=== PATIENT | female | born 1970 | race Caucasian/White ===

== ENCOUNTER 2016-08-07 19:09 | Emergency (ER) | payer OTHER ==
[2016-08-07] MEDS ORDERED: IBUPROFEN 800 MG TAB As Ordered ONE (19:49)
[2016-08-07] MEDS ORDERED: PERCOCET 5MG/325MG TAB As Ordered ONE (20:57)
[2016-08-07] MEDS ORDERED: LIDOCAINE 2% MDV 20 ML VIAL As Ordered ONE (20:57)
[2016-08-07] MEDS ORDERED: cefTRIAXone SOD 1 GM VIAL (J0696) As Ordered ONE (21:47)
[2016-08-07] MEDS ORDERED: LIDOCAINE 1% MDV 20ML VIAL As Ordered ONE (21:47)
--- NOTE | 2016-08-07 22:55 | EDDOCDS ---
Nurse's Notes [facility] Name: Pia Rojas Age: 45 yrs Sex: Female : 1970 Arrival Date: 08/07/2016 Time: 19:09 Bed I1 / M1 Private MD: NO PRIMARY PHYSICIAN, . Diagnosis: Displaced fracture of medial phalanx of right lesser toe(s);Displaced fracture of proximal phalanx of right lesser toe(s);Laceration without foreign body of right lesser toe(s) without damage to nail Presentation: 08/07 19:26 Presenting complaint: Patient states: was taking down the ladder fell onto right foot. rs3 pain, swelling present. Adult Sepsis Screening: The patient does not have new or worsening altered mentation. Patient's respiratory rate is less than 22. Systolic blood pressure is greater than 100. Patient has a qSOFA score of 0- Negative Sepsis Screen. Suicide/Homicide risk assessment- the patient denies having any suicidal and/or homicidal ideations and does not present with any other emotional, behavioral or mental health complaints. Status: Patient is not a water pump servicer or dependent. Transition of care: patient was not received from another setting of care. 19:26 Acuity: OMER Level 4 rs3 19:26 Method Of Arrival: Wheelchair rs3 Triage Assessment: 19:29 General: Appears in no apparent distress. Pain: Location: dorsum of right foot. Pt rs3 Declines HIV testing. Musculoskeletal: Reports Pain is 8 out of 10 on a pain scale. 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 fluvoxamine 200mg Oral once daily 2. Calcarb 600 With Vitamin D 600 mg(1,500mg) -200 unit Oral tab daily - PMHx: Anxiety; - PSHx: Uterine Ablation; - Social history: Smoking status: Patient states was never smoker of tobacco. No barriers to communication noted, The patient speaks fluent Omani. - Family history: Not pertinent. - : The pt / caregiver states he / she is not on anticoagulants. Home medication list is obtained from the patient. - Exposure Risk Screening:: None identified. Screenin:08 Screening information is obtained from the patient. Fall risk: No risks identified. lf1 Assistance ADL's: requires no assistance with activities of daily living. Abuse/DV Screen: The patient / caregiver reports he/she is: not in a situation that causes fear, pain or injury. Nutritional screening: No deficits noted. Advance Directives:. 22:54 home support is adequate. dsf Assessment: 20:42 General: right foot soaking in saline and Hibiclens . dsf 21:01 Adult Sepsis Screening: The patient does not have new or worsening altered mentation. dsf Patient's respiratory rate is less than 22. Systolic blood pressure is greater than 100. Patient has a qSOFA score of 0- Negative Sepsis Screen. General: Appears in no apparent distress, Behavior is appropriate for age, cooperative. Pain: Location: dorsum of right foot Pain currently is 5 out of 10 on a pain scale. Quality of pain is described as pressure. Neurological: Level of Consciousness is awake, alert, Oriented to person, place, time. Cardiovascular: No deficits noted. Respiratory: No deficits noted. Musculoskeletal: 4th digit to right toe rotated. laceration noted in between 2nd and 3rd digit. 22:08 General: Appears in no apparent distress, Behavior is cooperative. Pain: Denies pain. lf1 Neurological: Level of Consciousness is awake, alert, Oriented to person, place, time. EENT: No deficits noted. Cardiovascular: Chest pain is denied. Respiratory: Respiratory effort is even, unlabored. GI: Denies nausea, vomiting. Derm:. 22:21 General: Provider at bedside. lf1 22:47 General: dressing to right foot applied by Dr. Campos. dsf 22:52 General: Appears in no apparent distress, comfortable, Behavior is appropriate for age, dsf cooperative. Pain: Denies pain. Neurological: Level of Consciousness is awake, alert, Oriented to person, place, time. Cardiovascular: No deficits noted. Respiratory: No deficits noted. GI: No deficits noted. Derm: Skin is pink, warm & dry. Musculoskeletal: Circulation, motion, and sensation intact. Vital Signs: 19:12 BP 115 / 65; Pulse 100; Resp 18 S; Temp 97.9(T); Pulse Ox 100% on R/A; Weight 63.5 kg gr2 (R); Height 5 ft. 1 in. (154.94 cm) (R); Pain 10/10; 22:03 BP 113 / 57; Pulse 83; Resp 16; Temp 98.0(O); Pulse Ox 100% on R/A; Pain 0/10; lf1 22:51 BP 117 / 62; Pulse 80; Resp 16; Temp 98.5(O); Pulse Ox 96% on R/A; Pain 0/10; dsf 19:12 Body Mass Index 26.45 (63.50 kg, 154.94 cm) gr2 Vitals: 19:12 Log In Time: August 07, 2016 at 19:12. gr2 ED Course: 19:11 Patient visited by Farrukh Hare. gr2 19:11 Patient moved to Waiting gr2 19:12 NO PRIMARY PHYSICIAN, . is Private Physician. gr2 19:14 Patient visited by Farrukh Hare. gr2 19:14 Patient moved to Pre RCE gr2 19:28 Triage Initiated rs3 20:33 Patient moved to I1 / M1 cz 20:36 Ousmane Haider PA is PHCP. btw 20:36 Tristin Miller DO is Attending Physician. btw 20:36 Patient visited by Ousmane Haider PA. btw 21:02 Patient visited by Margie Cardenas RN. dsf 22:08 The patient / caregiver is instructed regarding the plan of care and ED course. lf1 22:10 Patient visited by Agnes Griffith RN. lf1 22:[facility] btw 22:48 No IV's were initiated during this patient's visit. No procedures done that require dsf assistance. Crutch training done. Ortho shoe applied to right foot. Administered Medications: 20:01 Drug: Ibuprofen 800 mg [ibuprofen 800 mg tablet (1 tabs)] Route: PO; rs3 20:59 Drug: oxyCODONE-acetaminophen 1 tabs [oxycodone-acetaminophen 5 mg-325 mg tablet (1 dsf tabs)] Route: PO; 21:45 Drug: Lidocaine 10 ml [lidocaine 20 mg/mL (2 %) injection solution (10 mL)] Route: dsf Infiltration; 21:52 Drug: cefTRIAXone 1 grams [ceftriaxone 1 gram solution for injection (1 grams)] Route: dsf IM; Site: right gluteus; 21:52 Drug: Lidocaine 2.1 ml [lidocaine 10 mg/mL (1 %) injection solution (2.1 mL)] Route: dsf Infiltration; Order Results: There are currently no results for this order. Outcome: 22:46 Discharge ordered by Provider. btw 22:52 Discharge Assessment: Patient awake, alert and oriented x 3. No cognitive and/or dsf functional deficits noted. Patient verbalized understanding of disposition instructions. patient administered narcotics - yes. Pt provided with safe discharge. The following High Risk Discharge criteria are identified: None. Discharged to home with crutches, with family. Condition: stable. Discharge instructions given to patient, Instructed on discharge instructions, follow up and referral plans. medication usage, no driving heavy equipment, crutch walking, Demonstrated understanding of instructions, crutch walking, medications, Pt was receptive of discharge instructions/ teaching. Prescriptions given X 3. No special radiology studies were completed. Property sent home with patient. 22:54 Patient left the ED. dsf Signatures: Cristobal Hallman, RN RN cz Agnes GriffithRN RN lf1 Bell PorrasRN RN rs3 Ousmane Haider PA PA bt Margie Cardenas RN RN dsf Farrukh Hare gr2 TAMMIE
--- NOTE | 2016-08-07 22:55 | EDDOCDS ---
Physician Documentation [facility] Name: Pia Rojas Age: 45 yrs Sex: Female : 1970 Arrival Date: 08/07/2016 Time: 19:09 Bed I1 / M1 Private MD: NO PRIMARY PHYSICIAN, . Disposition: 08/07/16 22:46 Discharged to Home/Self Care. Impression: Displaced fracture of medial phalanx of right lesser toe(s), Displaced fracture of proximal phalanx of right lesser toe(s), Laceration without foreign body of right lesser toe(s) without damage to nail. - Condition is Stable. - Discharge Instructions: Laceration Care, Adult, Toe Fracture, [id number]. - Prescriptions for Augmentin 875- 125 mg Oral Tablet - take 1 tablet by ORAL route every 12 hours for 10 days; 20 tablet. Ibuprofen 800 mg Oral Tablet - take 1 tablet by ORAL route every 8 hours As needed take with food; 30 tablet. Percocet 5- 325 mg Oral Tablet - take 1 tablet by ORAL route every 6 hours As needed MDD: 4 tabs; 20 tablet. - Medication Reconciliation, Local Pharmacy Hours form. - Follow up: Orthopaedics, [facility]; When: Call to arrange an appointment; Reason: Further diagnostic work-up, Recheck today's complaints, Continuance of care. - Problem is new. - Symptoms are unchanged. Historical: - Allergies: no known allergies; - Home Meds: 1. fluvoxamine 200mg Oral once daily 2. Calcarb 600 With Vitamin D 600 mg(1,500mg) -200 unit Oral tab daily - PMHx: Anxiety; - PSHx: Uterine Ablation; - Social history: Smoking status: Patient states was never smoker of tobacco. No barriers to communication noted, The patient speaks fluent [place]. - Family history: Not pertinent. - : The pt / caregiver states he / she is not on anticoagulants. Home medication list is obtained from the patient. - Exposure Risk Screening:: None identified. 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 1 in. (154.94 cm) (R); Pain 10/10; 22:03 BP 113 / 57; Pulse 83; Resp 16; Temp 98.0(O); Pulse Ox 100% on R/A; Pain 0/10; lf1 22:51 BP 117 / 62; Pulse 80; Resp 16; Temp 98.5(O); Pulse Ox 96% on R/A; Pain 0/10; dsf 19:12 Body Mass Index 26.45 (63.50 kg, 154.94 cm) gr2 MDM: 19:48 Ibuprofen 800 mg PO once ordered. rs3 20:30 Foot, complete Ordered. EDMS 20:47 oxyCODONE-acetaminophen 5 mg-325 mg 1 tabs PO once ordered. btw 20:47 Lidocaine 20 mg/mL (2 %) 10 ml Infiltration once; to bedside ordered. btw 21:43 cefTRIAXone 1 grams IM once ordered. btw 21:49 Lidocaine 10 mg/mL (1 %) 2.1 ml Infiltration once; to be used as diluent for rocephin btw ordered. [facility]. btw 22:46 Physician consultation: Dr. Pool Campos in the emergency department to see patient at btw 21:45. 22:47 Crutches ordered. btw 22:54 [facility] Order complete. dsf Administered Medications: 20:01 Drug: Ibuprofen 800 mg [ibuprofen 800 mg tablet (1 tabs)] Route: PO; rs3 20:59 Drug: oxyCODONE-acetaminophen 1 tabs [oxycodone-acetaminophen 5 mg-325 mg tablet (1 dsf tabs)] Route: PO; 21:45 Drug: Lidocaine 10 ml [lidocaine 20 mg/mL (2 %) injection solution (10 mL)] Route: dsf Infiltration; 21:52 Drug: cefTRIAXone 1 grams [ceftriaxone 1 gram solution for injection (1 grams)] Route: dsf IM; Site: right gluteus; 21:52 Drug: Lidocaine 2.1 ml [lidocaine 10 mg/mL (1 %) injection solution (2.1 mL)] Route: dsf Infiltration; Signatures: Dispatcher [employer] EDMS Bell Porras RN RN rs3 Ousmane Haider PA PA btw Cardenas,Margie,RN RN dsf The chart was reviewed and I authenticate all verbal orders and agree with the evaluation and treatment provided.Corrections: (The following items were deleted from the chart) 20:30 19:41 Foot, (AP\E\Lat)+XR ordered. EDMS EDMS MTDD
[2016-08-07] MEDS ORDERED: OXYCODONE/APAP 5MG/325MG(BULK) 1 TAB TAB As Ordered ONE (23:09)
--- NOTE | 2016-08-07 23:14 | EDDOCDS ---
Nurse's Notes [facility] Name: Pia Rojas Age: 45 yrs Sex: Female : 1970 Arrival Date: 08/07/2016 Time: 19:09 Bed I1 / M1 Private MD: NO PRIMARY PHYSICIAN, . Diagnosis: Displaced fracture of medial phalanx of right lesser toe(s);Displaced fracture of proximal phalanx of right lesser toe(s);Laceration without foreign body of right lesser toe(s) without damage to nail Presentation: 08/07 19:26 Presenting complaint: Patient states: was taking down the ladder fell onto right foot. rs3 pain, swelling present. Adult Sepsis Screening: The patient does not have new or worsening altered mentation. Patient's respiratory rate is less than 22. Systolic blood pressure is greater than 100. Patient has a qSOFA score of 0- Negative Sepsis Screen. Suicide/Homicide risk assessment- the patient denies having any suicidal and/or homicidal ideations and does not present with any other emotional, behavioral or mental health complaints. Status: Patient is not a corporate services manager or dependent. Transition of care: patient was not received from another setting of care. 19:26 Acuity: OMER Level 4 rs3 19:26 Method Of Arrival: Wheelchair rs3 Triage Assessment: 19:29 General: Appears in no apparent distress. Pain: Location: dorsum of right foot. Pt rs3 Declines HIV testing. Musculoskeletal: Reports Pain is 8 out of 10 on a pain scale. 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 fluvoxamine 200mg Oral once daily 2. Calcarb 600 With Vitamin D 600 mg(1,500mg) -200 unit Oral tab daily - PMHx: Anxiety; - PSHx: Uterine Ablation; - Social history: Smoking status: Patient states was never smoker of tobacco. No barriers to communication noted, The patient speaks fluent Cameroonian. - Family history: Not pertinent. - : The pt / caregiver states he / she is not on anticoagulants. Home medication list is obtained from the patient. - Exposure Risk Screening:: None identified. Screenin:08 Screening information is obtained from the patient. Fall risk: No risks identified. lf1 Assistance ADL's: requires no assistance with activities of daily living. Abuse/DV Screen: The patient / caregiver reports he/she is: not in a situation that causes fear, pain or injury. Nutritional screening: No deficits noted. Advance Directives:. 22:54 home support is adequate. dsf Assessment: 20:42 General: right foot soaking in saline and Hibiclens . dsf 21:01 Adult Sepsis Screening: The patient does not have new or worsening altered mentation. dsf Patient's respiratory rate is less than 22. Systolic blood pressure is greater than 100. Patient has a qSOFA score of 0- Negative Sepsis Screen. General: Appears in no apparent distress, Behavior is appropriate for age, cooperative. Pain: Location: dorsum of right foot Pain currently is 5 out of 10 on a pain scale. Quality of pain is described as pressure. Neurological: Level of Consciousness is awake, alert, Oriented to person, place, time. Cardiovascular: No deficits noted. Respiratory: No deficits noted. Musculoskeletal: 4th digit to right toe rotated. laceration noted in between 2nd and 3rd digit. 22:08 General: Appears in no apparent distress, Behavior is cooperative. Pain: Denies pain. lf1 Neurological: Level of Consciousness is awake, alert, Oriented to person, place, time. EENT: No deficits noted. Cardiovascular: Chest pain is denied. Respiratory: Respiratory effort is even, unlabored. GI: Denies nausea, vomiting. Derm:. 22:21 General: Provider at bedside. lf1 22:47 General: dressing to right foot applied by Dr. Campos. dsf 22:52 General: Appears in no apparent distress, comfortable, Behavior is appropriate for age, dsf cooperative. Pain: Denies pain. Neurological: Level of Consciousness is awake, alert, Oriented to person, place, time. Cardiovascular: No deficits noted. Respiratory: No deficits noted. GI: No deficits noted. Derm: Skin is pink, warm & dry. Musculoskeletal: Circulation, motion, and sensation intact. Vital Signs: 19:12 BP 115 / 65; Pulse 100; Resp 18 S; Temp 97.9(T); Pulse Ox 100% on R/A; Weight 63.5 kg gr2 (R); Height 5 ft. 1 in. (154.94 cm) (R); Pain 10/10; 22:03 BP 113 / 57; Pulse 83; Resp 16; Temp 98.0(O); Pulse Ox 100% on R/A; Pain 0/10; lf1 22:51 BP 117 / 62; Pulse 80; Resp 16; Temp 98.5(O); Pulse Ox 96% on R/A; Pain 0/10; dsf 19:12 Body Mass Index 26.45 (63.50 kg, 154.94 cm) gr2 Vitals: 19:12 Log In Time: August 07, 2016 at 19:12. gr2 ED Course: 19:11 Patient visited by Farrukh Hare. gr2 19:11 Patient moved to Waiting gr2 19:12 NO PRIMARY PHYSICIAN, . is Private Physician. gr2 19:14 Patient visited by Farrukh Hare. gr2 19:14 Patient moved to Pre RCE gr2 19:28 Triage Initiated rs3 20:33 Patient moved to I1 / M1 cz 20:36 Ousmane Haider PA is PHCP. btw 20:36 Tristin Miller DO is Attending Physician. btw 20:36 Patient visited by Ousmane Haider PA. btw 21:02 Patient visited by Margie Cardenas RN. dsf 22:08 The patient / caregiver is instructed regarding the plan of care and ED course. lf1 22:10 Patient visited by Agnes Griffith RN. lf1 22:[facility] btw 22:48 No IV's were initiated during this patient's visit. No procedures done that require dsf assistance. Crutch training done. Ortho shoe applied to right foot. 23:01 [facility] Payment Agreement was scanned into [employer] and attached to record. [email or web address] Administered Medications: 20:01 Drug: Ibuprofen 800 mg [ibuprofen 800 mg tablet (1 tabs)] Route: PO; rs3 20:59 Drug: oxyCODONE-acetaminophen 1 tabs [oxycodone-acetaminophen 5 mg-325 mg tablet (1 dsf tabs)] Route: PO; 21:45 Drug: Lidocaine 10 ml [lidocaine 20 mg/mL (2 %) injection solution (10 mL)] Route: dsf Infiltration; 21:52 Drug: cefTRIAXone 1 grams [ceftriaxone 1 gram solution for injection (1 grams)] Route: dsf IM; Site: right gluteus; 21:52 Drug: Lidocaine 2.1 ml [lidocaine 10 mg/mL (1 %) injection solution (2.1 mL)] Route: dsf Infiltration; Order Results: There are currently no results for this order. Outcome: 22:46 Discharge ordered by Provider. btw 22:52 Discharge Assessment: Patient awake, alert and oriented x 3. No cognitive and/or dsf functional deficits noted. Patient verbalized understanding of disposition instructions. patient administered narcotics - yes. Pt provided with safe discharge. The following High Risk Discharge criteria are identified: None. Discharged to home with crutches, with family. Condition: stable. Discharge instructions given to patient, Instructed on discharge instructions, follow up and referral plans. medication usage, no driving heavy equipment, crutch walking, Demonstrated understanding of instructions, crutch walking, medications, Pt was receptive of discharge instructions/ teaching. Prescriptions given X 3. No special radiology studies were completed. Property sent home with patient. 22:54 Patient left the ED. dsf 23:13 Patient left the ED. btw Signatures: Cristobal Hallman, RN RN Agnes Walker RN RN lf1 Bell PorrasRN RN rs3 Ousmane Haider PA PA btw Margie Cardenas RN RN dsf Farrukh Hare gr2 Lola Lo, Reg Reg [email or web address] MTDD
--- NOTE | 2016-08-07 23:14 | EDDOCDS ---
Physician Documentation [facility] Name: Pia Rojas Age: 45 yrs Sex: Female : 1970 Arrival Date: 08/07/2016 Time: 19:09 Bed I1 / M1 Private MD: NO PRIMARY PHYSICIAN, . Disposition: 08/07/16 22:46 Discharged to Home/Self Care. Impression: Displaced fracture of medial phalanx of right lesser toe(s), Displaced fracture of proximal phalanx of right lesser toe(s), Laceration without foreign body of right lesser toe(s) without damage to nail. - Condition is Stable. - Discharge Instructions: Laceration Care, Adult, Toe Fracture, [id number]. - Prescriptions for Augmentin 875- 125 mg Oral Tablet - take 1 tablet by ORAL route every 12 hours for 10 days; 20 tablet. Ibuprofen 800 mg Oral Tablet - take 1 tablet by ORAL route every 8 hours As needed take with food; 30 tablet. Percocet 5- 325 mg Oral Tablet - take 1 tablet by ORAL route every 6 hours As needed MDD: 4 tabs; 20 tablet. - Medication Reconciliation, Local Pharmacy Hours form. - Follow up: Orthopaedics, [facility]; When: Call to arrange an appointment; Reason: Further diagnostic work-up, Recheck today's complaints, Continuance of care. - Problem is new. - Symptoms are unchanged. Historical: - Allergies: no known allergies; - Home Meds: 1. fluvoxamine 200mg Oral once daily 2. Calcarb 600 With Vitamin D 600 mg(1,500mg) -200 unit Oral tab daily - PMHx: Anxiety; - PSHx: Uterine Ablation; - Social history: Smoking status: Patient states was never smoker of tobacco. No barriers to communication noted, The patient speaks fluent Botswanan. - Family history: Not pertinent. - : The pt / caregiver states he / she is not on anticoagulants. Home medication list is obtained from the patient. - Exposure Risk Screening:: None identified. 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 1 in. (154.94 cm) (R); Pain 10/10; 22:03 BP 113 / 57; Pulse 83; Resp 16; Temp 98.0(O); Pulse Ox 100% on R/A; Pain 0/10; lf1 22:51 BP 117 / 62; Pulse 80; Resp 16; Temp 98.5(O); Pulse Ox 96% on R/A; Pain 0/10; dsf 19:12 Body Mass Index 26.45 (63.50 kg, 154.94 cm) gr2 MDM: 19:48 Ibuprofen 800 mg PO once ordered. rs3 20:30 Foot, complete Ordered. EDMS 20:47 oxyCODONE-acetaminophen 5 mg-325 mg 1 tabs PO once ordered. btw 20:47 Lidocaine 20 mg/mL (2 %) 10 ml Infiltration once; to bedside ordered. btw 21:43 cefTRIAXone 1 grams IM once ordered. btw 21:49 Lidocaine 10 mg/mL (1 %) 2.1 ml Infiltration once; to be used as diluent for rocephin btw ordered. 22:44 [facility] Configuration Engineer Order ordered. btw 22:46 Physician consultation: Dr. Pool Campos in the emergency department to see patient at btw 21:45. 22:47 Crutches ordered. btw 22:54 [facility] Configuration Engineer Order complete. dsf 23:01 Financial registration complete. ks16 23:01 [facility] Payment Agreement was scanned into [employer] and attached to record. ks16 23:07 oxyCODONE-acetaminophen 4 pack 5 mg-325 mg 1 packets PO once; Dispense with pt, take as btw per instruction on package ordered. Administered Medications: 20:01 Drug: Ibuprofen 800 mg [ibuprofen 800 mg tablet (1 tabs)] Route: PO; rs3 20:59 Drug: oxyCODONE-acetaminophen 1 tabs [oxycodone-acetaminophen 5 mg-325 mg tablet (1 dsf tabs)] Route: PO; 21:45 Drug: Lidocaine 10 ml [lidocaine 20 mg/mL (2 %) injection solution (10 mL)] Route: dsf Infiltration; 21:52 Drug: cefTRIAXone 1 grams [ceftriaxone 1 gram solution for injection (1 grams)] Route: dsf IM; Site: right gluteus; 21:52 Drug: Lidocaine 2.1 ml [lidocaine 10 mg/mL (1 %) injection solution (2.1 mL)] Route: dsf Infiltration; Signatures: Dispatcher [employer] Bell Abraham RN RN rs3 Ousmane Haider PA PA btw Fuller, Desiree, RN RN dsf Lola Lo, Reg Reg [email or web address] The chart was reviewed and I authenticate all verbal orders and agree with the evaluation and treatment provided.Corrections: (The following items were deleted from the chart) 20:30 19:41 Foot, (AP\E\Lat)+XR ordered. EDMS EDMS Attachments: 23:01 [facility] Payment Agreement [email or web address] MTDD
--- NOTE | 2016-08-08 06:38 | ER ---
DATE OF CONSULTATION: 08/07/2016 She is a 45-year-old female, otherwise healthy, who sustained an injury to her right foot when a ladder fell on it causing fractures of the third and fourth middle phalanxes associated with lacerations dorsally and between the fourth and fifth toes. I was called to evaluate the possibility of open fracture into the fourth toe metatarsal phalangeal joint. On exam, no acute distress noted. No other complaints. She had some minute deformity of the fourth toe with dorsal subluxation. She was insensate secondary to previous digital blocking, but did have flexion and extension of all toes. X-rays demonstrate comminuted fractures of the middle phalanx of the third toe and a fracture dislocation of the fourth toe middle phalanx on the proximal phalanx that is unstable in nature. With exam, this is unstable in nature as well. The wounds were all copiously irrigated and soaked with chlorhexidine. The dorsal laceration was closed with one #4-0 Prolene suture without difficulty and no active bleeding. The laceration between the fourth and fifth toe was approximated with one chromic suture to negate the need for future suture removal and deformation of the fourth toe. She was placed in a reducing bandage to help hold the toes in alignment. Recommendation for her is continued oral antibiotics, strong pain medications, including Percocet and Motrin, and I would recommend early wound check followup on Thursday or Thursday of next week. She has my contact information as well should she have any issues.
--- NOTE | 2016-08-08 07:54 | REP ---
Clinical: Trauma. Technique: AP, lateral, bilateral oblique views of the right foot. Findings: Comminuted fractures involving the third toe proximal, middle and distal phalanges and fourth proximal phalanx are identified and of indeterminate age. Correlation is required. Underlying degenerative changes are appreciated primarily involving the tarsometatarsal joints and first toe. No subcutaneous emphysema or radiodense foreign body. Impression: Fractures involving the third and fourth digits. Degenerative changes. Signed by Bhargav Urban MD 08/08/2016 07:46 A
--- NOTE | 2016-08-10 00:14 | EDDOCDS ---
Physician Documentation [facility] Name: Pia Rojas Age: 45 yrs Sex: Female : 1970 Arrival Date: 08/07/2016 Time: 19:09 Bed I1 / M1 Private MD: NO PRIMARY PHYSICIAN, . Disposition: 08/07/16 22:46 Discharged to Home/Self Care. Impression: Displaced fracture of medial phalanx of right lesser toe(s), Displaced fracture of proximal phalanx of right lesser toe(s), Laceration without foreign body of right lesser toe(s) without damage to nail. - Condition is Stable. - Discharge Instructions: Laceration Care, Adult, Toe Fracture, [id number]. - Prescriptions for Augmentin 875- 125 mg Oral Tablet - take 1 tablet by ORAL route every 12 hours for 10 days; 20 tablet. Ibuprofen 800 mg Oral Tablet - take 1 tablet by ORAL route every 8 hours As needed take with food; 30 tablet. Percocet 5- 325 mg Oral Tablet - take 1 tablet by ORAL route every 6 hours As needed MDD: 4 tabs; 20 tablet. - Medication Reconciliation, Local Pharmacy Hours form. - Follow up: Orthopaedics, [facility]; When: Call to arrange an appointment; Reason: Further diagnostic work-up, Recheck today's complaints, Continuance of care. - Problem is new. - Symptoms are unchanged. Historical: - Allergies: no known allergies; - Home Meds: 1. fluvoxamine 200mg Oral once daily 2. Calcarb 600 With Vitamin D 600 mg(1,500mg) -200 unit Oral tab daily - PMHx: Anxiety; - PSHx: Uterine Ablation; - Social history: Smoking status: Patient states was never smoker of tobacco. No barriers to communication noted, The patient speaks fluent Samoan. - Family history: Not pertinent. - : The pt / caregiver states he / she is not on anticoagulants. Home medication list is obtained from the patient. - Exposure Risk Screening:: None identified. 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 1 in. (154.94 cm) (R); Pain 10/10; 22:03 BP 113 / 57; Pulse 83; Resp 16; Temp 98.0(O); Pulse Ox 100% on R/A; Pain 0/10; lf1 22:51 BP 117 / 62; Pulse 80; Resp 16; Temp 98.5(O); Pulse Ox 96% on R/A; Pain 0/10; dsf 19:12 Body Mass Index 26.45 (63.50 kg, 154.94 cm) gr2 MDM: 19:48 Ibuprofen 800 mg PO once ordered. rs3 20:30 Foot, complete Ordered. EDMS 20:47 oxyCODONE-acetaminophen 5 mg-325 mg 1 tabs PO once ordered. btw 20:47 Lidocaine 20 mg/mL (2 %) 10 ml Infiltration once; to bedside ordered. btw 21:43 cefTRIAXone 1 grams IM once ordered. btw 21:49 Lidocaine 10 mg/mL (1 %) 2.1 ml Infiltration once; to be used as diluent for rocephin btw ordered. 22:44 [facility] Order ordered. btw 22:46 Physician consultation: Dr. Pool Campos in the emergency department to see patient at btw 21:45. 22:47 Crutches ordered. btw 22:54 [facility] Order complete. dsf 23:01 Financial registration complete. ks16 23:01 [facility] Payment Agreement was scanned into [employer] and attached to record. ks16 23:07 oxyCODONE-acetaminophen 4 pack 5 mg-325 mg 1 packets PO once; Dispense with pt, take as btw per instruction on package ordered. 08/08 10:09 T-Sheet-- Draft Copy was scanned into [employer] and attached to record. gb Administered Medications: 08/07 20:01 Drug: Ibuprofen 800 mg [ibuprofen 800 mg tablet (1 tabs)] Route: PO; rs3 20:59 Drug: oxyCODONE-acetaminophen 1 tabs [oxycodone-acetaminophen 5 mg-325 mg tablet (1 dsf tabs)] Route: PO; 21:45 Drug: Lidocaine 10 ml [lidocaine 20 mg/mL (2 %) injection solution (10 mL)] Route: dsf Infiltration; 21:52 Drug: cefTRIAXone 1 grams [ceftriaxone 1 gram solution for injection (1 grams)] Route: dsf IM; Site: right gluteus; 21:52 Drug: Lidocaine 2.1 ml [lidocaine 10 mg/mL (1 %) injection solution (2.1 mL)] Route: dsf Infiltration; 23:15 Drug: oxyCODONE-acetaminophen 4 pack 1 packets [oxycodone-acetaminophen 5 mg-325 mg rw1 tablet (1 tabs)] {Co-Signature: ld5 (Cecilia Alaniz RN).} Route: PO; 23:15 Follow up: Response: Med's dispensed home rw1 Signatures: Dispatcher [employer] EDMS Leila Friedman, Reg Reg gb Bell Porras RN RN rs3 Ousmane Haider PA PA btw Fuller, DesireeRN RN dsf Lola Lo, Reg Reg ks16 Ananda Bueno LPN rw1 Cecilia Alaniz RN ld5 The chart was reviewed and I authenticate all verbal orders and agree with the evaluation and treatment provided.Corrections: (The following items were deleted from the chart) 20:30 19:41 Foot, (AP\E\Lat)+XR ordered. EDMS EDMS Attachments: 23:01 [facility] Payment Agreement [email or web address] 08/08 10:09 T-Sheet-- Draft Copy gb Chart [facility]
--- NOTE | 2016-08-10 00:14 | EDDOCDS ---
Nurse's Notes [facility] Name: Pia Rojas Age: 45 yrs Sex: Female : 1970 Arrival Date: 08/07/2016 Time: 19:09 Bed I1 / M1 Private MD: NO PRIMARY PHYSICIAN, . Diagnosis: Displaced fracture of medial phalanx of right lesser toe(s);Displaced fracture of proximal phalanx of right lesser toe(s);Laceration without foreign body of right lesser toe(s) without damage to nail Presentation: 08/07 19:26 Presenting complaint: Patient states: was taking down the ladder fell onto right foot. rs3 pain, swelling present. Adult Sepsis Screening: The patient does not have new or worsening altered mentation. Patient's respiratory rate is less than 22. Systolic blood pressure is greater than 100. Patient has a qSOFA score of 0- Negative Sepsis Screen. Suicide/Homicide risk assessment- the patient denies having any suicidal and/or homicidal ideations and does not present with any other emotional, behavioral or mental health complaints. 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 Transition of care: patient was not received from another setting of care. 19:26 Acuity: OMER Level 4 rs3 19:26 Method Of Arrival: Wheelchair rs3 Triage Assessment: 19:29 General: Appears in no apparent distress. Pain: Location: dorsum of right foot. Pt rs3 Declines HIV testing. Musculoskeletal: Reports Pain is 8 out of 10 on a pain scale. 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 fluvoxamine 200mg Oral once daily 2. Calcarb 600 With Vitamin D 600 mg(1,500mg) -200 unit Oral tab daily - PMHx: Anxiety; - PSHx: Uterine Ablation; - Social history: Smoking status: Patient states was never smoker of tobacco. No barriers to communication noted, The patient speaks fluent Filipino. - Family history: Not pertinent. - : The pt / caregiver states he / she is not on anticoagulants. Home medication list is obtained from the patient. - Exposure Risk Screening:: None identified. Screenin:08 Screening information is obtained from the patient. Fall risk: No risks identified. lf1 Assistance ADL's: requires no assistance with activities of daily living. Abuse/DV Screen: The patient / caregiver reports he/she is: not in a situation that causes fear, pain or injury. Nutritional screening: No deficits noted. Advance Directives:. 22:54 home support is adequate. dsf Assessment: 20:42 General: right foot soaking in saline and Hibiclens . dsf 21:01 Adult Sepsis Screening: The patient does not have new or worsening altered mentation. dsf Patient's respiratory rate is less than 22. Systolic blood pressure is greater than 100. Patient has a qSOFA score of 0- Negative Sepsis Screen. General: Appears in no apparent distress, Behavior is appropriate for age, cooperative. Pain: Location: dorsum of right foot Pain currently is 5 out of 10 on a pain scale. Quality of pain is described as pressure. Neurological: Level of Consciousness is awake, alert, Oriented to person, place, time. Cardiovascular: No deficits noted. Respiratory: No deficits noted. Musculoskeletal: 4th digit to right toe rotated. laceration noted in between 2nd and 3rd digit. 22:08 General: Appears in no apparent distress, Behavior is cooperative. Pain: Denies pain. lf1 Neurological: Level of Consciousness is awake, alert, Oriented to person, place, time. EENT: No deficits noted. Cardiovascular: Chest pain is denied. Respiratory: Respiratory effort is even, unlabored. GI: Denies nausea, vomiting. Derm:. 22:21 General: Provider at bedside. lf1 22:47 General: dressing to right foot applied by Dr. Campso. dsf 22:52 General: Appears in no apparent distress, comfortable, Behavior is appropriate for age, dsf cooperative. Pain: Denies pain. Neurological: Level of Consciousness is awake, alert, Oriented to person, place, time. Cardiovascular: No deficits noted. Respiratory: No deficits noted. GI: No deficits noted. Derm: Skin is pink, warm & dry. Musculoskeletal: Circulation, motion, and sensation intact. Vital Signs: 19:12 BP 115 / 65; Pulse 100; Resp 18 S; Temp 97.9(T); Pulse Ox 100% on R/A; Weight 63.5 kg gr2 (R); Height 5 ft. 1 in. (154.94 cm) (R); Pain 10/10; 22:03 BP 113 / 57; Pulse 83; Resp 16; Temp 98.0(O); Pulse Ox 100% on R/A; Pain 0/10; lf1 22:51 BP 117 / 62; Pulse 80; Resp 16; Temp 98.5(O); Pulse Ox 96% on R/A; Pain 0/10; dsf 19:12 Body Mass Index 26.45 (63.50 kg, 154.94 cm) gr2 Vitals: 19:12 Log In Time: August 07, 2016 at 19:12. gr2 ED Course: 19:11 Patient visited by Farrukh Hare. gr2 19:11 Patient moved to Waiting gr2 19:12 NO PRIMARY PHYSICIAN, . is Private Physician. gr2 19:14 Patient visited by Farrukh Hare. gr2 19:14 Patient moved to Pre RCE gr2 19:28 Triage Initiated rs3 20:33 Patient moved to I1 / M1 cz 20:36 Ousmane Haider PA is PHCP. btw 20:36 Tristin Miller DO is Attending Physician. btw 20:36 Patient visited by Ousmane Haider PA. btw 21:02 Patient visited by Margie Cardenas RN. dsf 22:08 The patient / caregiver is instructed regarding the plan of care and ED course. lf1 22:10 Patient visited by Agnes Griffith RN. lf1 [facility] btw 22:48 No IV's were initiated during this patient's visit. No procedures done that require dsf assistance. Crutch training done. Ortho shoe applied to right foot. 23:01 [facility] Payment Agreement was scanned into [employer] and attached to record. ks16 08/08 08:27 Foot, complete Returned. EDMS 10:09 T-Sheet-- Draft Copy was scanned into [employer] and attached to record. gb Administered Medications: 08/07 20:01 Drug: Ibuprofen 800 mg [ibuprofen 800 mg tablet (1 tabs)] Route: PO; rs3 20:59 Drug: oxyCODONE-acetaminophen 1 tabs [oxycodone-acetaminophen 5 mg-325 mg tablet (1 dsf tabs)] Route: PO; 21:45 Drug: Lidocaine 10 ml [lidocaine 20 mg/mL (2 %) injection solution (10 mL)] Route: dsf Infiltration; 21:52 Drug: cefTRIAXone 1 grams [ceftriaxone 1 gram solution for injection (1 grams)] Route: dsf IM; Site: right gluteus; 21:52 Drug: Lidocaine 2.1 ml [lidocaine 10 mg/mL (1 %) injection solution (2.1 mL)] Route: dsf Infiltration; 23:15 Drug: oxyCODONE-acetaminophen 4 pack 1 packets [oxycodone-acetaminophen 5 mg-325 mg rw1 tablet (1 tabs)] {Co-Signature: ld5 (Cecilia Alaniz RN).} Route: PO; 23:15 Follow up: Response: Med's dispensed home rw1 Order Results: Radiology Order: Foot, complete Test: Foot, complete REASON FOR EXAMINATION: Trauma; Clinical: Trauma.; ; Technique: AP, lateral, bilateral oblique views of the right foot.; ; Findings:; Comminuted fractures involving the third toe proximal, middle and distal; phalanges and fourth proximal phalanx are identified and of indeterminate age.; Correlation is required. Underlying degenerative changes are appreciated; primarily involving the tarsometatarsal joints and first toe. No subcutaneous; emphysema or radiodense foreign body.; ; Impression:; Fractures involving the third and fourth digits.; Degenerative changes.; ; ; Signed by; Bhargav Urban MD 08/08/2016 07:46 A; Outcome: 22:46 Discharge ordered by Provider. btw 22:52 Discharge Assessment: Patient awake, alert and oriented x 3. No cognitive and/or dsf functional deficits noted. Patient verbalized understanding of disposition instructions. patient administered narcotics - yes. Pt provided with safe discharge. The following High Risk Discharge criteria are identified: None. Discharged to home with crutches, with family. Condition: stable. Discharge instructions given to patient, Instructed on discharge instructions, follow up and referral plans. medication usage, no driving heavy equipment, crutch walking, Demonstrated understanding of instructions, crutch walking, medications, Pt was receptive of discharge instructions/ teaching. Prescriptions given X 3. No special radiology studies were completed. Property sent home with patient. 22:54 Patient left the ED. dsf 23:13 Patient left the ED. btw Signatures: Dispatcher [employer] EDMS Cristobal Hallman RN RN Leila Meza, Ananda Long LPN LPN rw1 Agnes GriffithRN RN lf1 Bell PorrasRN RN rs3 Ousmane Haider PA PA btw Fuller, DesireeRN RN dsf Farrukh Hare gr2 Lola Lo, Reg Reg ks16 Cecilia Alaniz RN ld5 Chart Complete MTDD
--- NOTE | 2016-08-10 00:14 | EDDOCDS ---
Physician Documentation [facility] Name: Pia Rojas Age: 45 yrs Sex: Female : 1970 Arrival Date: 08/07/2016 Time: 19:09 Bed I1 / M1 Private MD: NO PRIMARY PHYSICIAN, . Disposition: 08/07/16 22:46 Discharged to Home/Self Care. Impression: Displaced fracture of medial phalanx of right lesser toe(s), Displaced fracture of proximal phalanx of right lesser toe(s), Laceration without foreign body of right lesser toe(s) without damage to nail. - Condition is Stable. - Discharge Instructions: Laceration Care, Adult, Toe Fracture, [id number]. - Prescriptions for Augmentin 875- 125 mg Oral Tablet - take 1 tablet by ORAL route every 12 hours for 10 days; 20 tablet. Ibuprofen 800 mg Oral Tablet - take 1 tablet by ORAL route every 8 hours As needed take with food; 30 tablet. Percocet 5- 325 mg Oral Tablet - take 1 tablet by ORAL route every 6 hours As needed MDD: 4 tabs; 20 tablet. - Medication Reconciliation, Local Pharmacy Hours form. - Follow up: Orthopaedics, [facility]; When: Call to arrange an appointment; Reason: Further diagnostic work-up, Recheck today's complaints, Continuance of care. - Problem is new. - Symptoms are unchanged. Historical: - Allergies: no known allergies; - Home Meds: 1. fluvoxamine 200mg Oral once daily 2. Calcarb 600 With Vitamin D 600 mg(1,500mg) -200 unit Oral tab daily - PMHx: Anxiety; - PSHx: Uterine Ablation; - Social history: Smoking status: Patient states was never smoker of tobacco. No barriers to communication noted, The patient speaks fluent Uzbek. - Family history: Not pertinent. - : The pt / caregiver states he / she is not on anticoagulants. Home medication list is obtained from the patient. - Exposure Risk Screening:: None identified. 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 1 in. (154.94 cm) (R); Pain 10/10; 22:03 BP 113 / 57; Pulse 83; Resp 16; Temp 98.0(O); Pulse Ox 100% on R/A; Pain 0/10; lf1 22:51 BP 117 / 62; Pulse 80; Resp 16; Temp 98.5(O); Pulse Ox 96% on R/A; Pain 0/10; dsf 19:12 Body Mass Index 26.45 (63.50 kg, 154.94 cm) gr2 MDM: 19:48 Ibuprofen 800 mg PO once ordered. rs3 20:30 Foot, complete Ordered. EDMS 20:47 oxyCODONE-acetaminophen 5 mg-325 mg 1 tabs PO once ordered. btw 20:47 Lidocaine 20 mg/mL (2 %) 10 ml Infiltration once; to bedside ordered. btw 21:43 cefTRIAXone 1 grams IM once ordered. btw 21:49 Lidocaine 10 mg/mL (1 %) 2.1 ml Infiltration once; to be used as diluent for rocephin btw ordered. 22:44 [facility] Order ordered. btw 22:46 Physician consultation: Dr. Pool Campos in the emergency department to see patient at btw 21:45. 22:47 Crutches ordered. btw 22:54 [facility] Order complete. dsf 23:01 Financial registration complete. ks16 23:01 [facility] Payment Agreement was scanned into [employer] and attached to record. ks16 23:07 oxyCODONE-acetaminophen 4 pack 5 mg-325 mg 1 packets PO once; Dispense with pt, take as btw per instruction on package ordered. 08/08 10:09 T-Sheet-- Draft Copy was scanned into [employer] and attached to record. gb Administered Medications: 08/07 20:01 Drug: Ibuprofen 800 mg [ibuprofen 800 mg tablet (1 tabs)] Route: PO; rs3 20:59 Drug: oxyCODONE-acetaminophen 1 tabs [oxycodone-acetaminophen 5 mg-325 mg tablet (1 dsf tabs)] Route: PO; 21:45 Drug: Lidocaine 10 ml [lidocaine 20 mg/mL (2 %) injection solution (10 mL)] Route: dsf Infiltration; 21:52 Drug: cefTRIAXone 1 grams [ceftriaxone 1 gram solution for injection (1 grams)] Route: dsf IM; Site: right gluteus; 21:52 Drug: Lidocaine 2.1 ml [lidocaine 10 mg/mL (1 %) injection solution (2.1 mL)] Route: dsf Infiltration; 23:15 Drug: oxyCODONE-acetaminophen 4 pack 1 packets [oxycodone-acetaminophen 5 mg-325 mg rw1 tablet (1 tabs)] {Co-Signature: ld5 (Cecilia Alaniz RN).} Route: PO; 23:15 Follow up: Response: Med's dispensed home rw1 Signatures: Dispatcher [employer] EDMS Leila Friedman, Reg Reg gb Bell Porras RN RN rs3 Ousmane Haider PA PA btw Fuller, DesireeRN RN dsf Lola Lo, Reg Reg ks16 Ananda Bueno LPN rw1 Cecilia Alaniz RN ld5 The chart was reviewed and I authenticate all verbal orders and agree with the evaluation and treatment provided.Corrections: (The following items were deleted from the chart) 20:30 19:41 Foot, (AP\E\Lat)+XR ordered. EDMS EDMS Attachments: 23:01 [facility] Payment Agreement [email or web address] 08/08 10:09 T-Sheet-- Draft Copy gb [facility]
== END 2016-08-07 23:13 | disposition home or self-care (01) ==
LOC: M ED 19:09
DX: S92.531A Displaced fracture of distal phalanx of right lesser toe(s), initial encounter for closed fracture (principal); S92.521A Displaced fracture of middle phalanx of right lesser toe(s), initial encounter for closed fracture; S92.511A Displaced fracture of proximal phalanx of right lesser toe(s), initial encounter for closed fracture; W22.8XXA Striking against or struck by other objects, initial encounter; Y92.019 Unspecified place in single-family (private) house as the place of occurrence of the external cause; Y93.89 Activity, other specified; Y99.8 Other external cause status; F41.9 Anxiety disorder, unspecified; Z79.899 Other long term (current) drug therapy
CPT/HCPCS: 12001; 73630; 96372; 99284; J0696

== ENCOUNTER → 2018-11-11 | Outpatient (REF) | payer OTHER ==
[2018-11-20 15:08] LABS: HPV HYBRID CAPTURE II Negative (Negative)
== END ==
LOC: M LAB LCGH 14:47
DX: Z12.4 Encounter for screening for malignant neoplasm of cervix (principal)
CPT/HCPCS: 87624; G0123

== ENCOUNTER 2022-02-18 12:37 | Outpatient (RCR) | payer OTHER, SELFPAY | END 2022-02-23 | LOC: M PT 12:37 | PROVIDERS: ATTEND Nurse Practitioner Family | DX: I89.0 Lymphedema, not elsewhere classified (principal); Z91.89 Other specified personal risk factors, not elsewhere classified ==

== ENCOUNTER → 2023-09-23 | Outpatient (REF) | payer OTHER ==
[2023-09-23 21:16] LABS: APPEARANCE, URINE TURBID (CLEAR); BACTERIA, URINE AUTO 1+ (NEGATIVE); BILIRUBIN, URINE AUTO NEGATIVE (NEGATIVE); BLOOD, URINE BLOOD 2+ (NEGATIVE); COLOR, URINE YELLOW (YELLOW); GLUCOSE, URINE (UA) AUTO NEGATIVE (NEGATIVE); KETONE, URINE AUTO NEGATIVE (NEGATIVE); LEUKOCYTE ESTERASE, URINE AUTO 3+ (NEGATIVE); NITRITE, URINE AUTO POSITIVE (NEGATIVE); PROTEIN, URINE AUTO 1+ mg/dL (NEGATIVE); RBC, URINE AUTO 31 /HPF (0-3); SPECIFIC GRAVITY URINE AUTO 1.015 (1.002-1.035); SQUAMOUS EPITHELIAL CELL UR AU 3 /HPF (0-6); UROBILINOGEN, URINE AUTO 0.2 mg/dL (0.0-2.0); WBC, URINE AUTO TNTC /HPF (0-3)
== END ==
LOC: M LAB REF 21:01
PROVIDERS: ATTEND Physician Assistant Medical
DX: N39.0 Urinary tract infection, site not specified (principal)

== ENCOUNTER → 2024-04-05 | Outpatient (REF) | payer OTHER ==
[2024-04-05 21:11] LABS: AMORPHOUS SEDIMENT SMALL (NEGATIVE); APPEARANCE, URINE CLOUDY (CLEAR); BACTERIA, URINE AUTO 1+ (NEGATIVE); BILIRUBIN, URINE AUTO NEGATIVE (NEGATIVE); BLOOD, URINE BLOOD NEGATIVE (NEGATIVE); CALCIUM OXALATE CRYSTALS LARGE; COLOR, URINE YELLOW (YELLOW); GLUCOSE, URINE (UA) AUTO NEGATIVE (NEGATIVE); KETONE, URINE AUTO NEGATIVE (NEGATIVE); LEUKOCYTE ESTERASE, URINE AUTO 3+ (NEGATIVE); NITRITE, URINE AUTO NEGATIVE (NEGATIVE); PROTEIN, URINE AUTO NEGATIVE (NEGATIVE); RBC, URINE AUTO 12 /HPF (0-3); SPECIFIC GRAVITY URINE AUTO 1.019 (1.002-1.035); SQUAMOUS EPITHELIAL CELL UR AU 3 /HPF (0-6); TRANSITIONAL EPITHELIAL AUTO <1 /HPF; UROBILINOGEN, URINE AUTO 0.2 mg/dL (0.0-2.0); WBC, URINE AUTO 116 /HPF (0-3)
== END ==
LOC: M LAB REF 20:40
PROVIDERS: ATTEND Physician Assistant Medical
DX: N39.0 Urinary tract infection, site not specified (principal)

== ENCOUNTER → 2024-04-26 | Outpatient (CLI) | payer OTHER ==
[2024-04-26 12:05] LABS: HEMATOCRIT 42.8 % (36.0-47.0); HEMOGLOBIN 14.7 g/dl (12.0-15.5); MEAN CORPUSCULAR HEMOGLOBIN 31.7 pg (27.0-33.0); MEAN CORPUSCULAR HGB CONC 34.3 g/dl (32.0-36.5); MEAN CORPUSCULAR VOLUME 92.2 fl (80.0-96.0); PLATELET COUNT, AUTOMATED 260 10^3/uL (150-450); RED BLOOD COUNT 4.64 10^6/uL (4.00-5.40); WHITE BLOOD COUNT 8.8 10^3/uL (4.0-10.0)
[2024-04-26 12:08] LABS: C REACTIVE PROTEIN QUANTITATIV < 0.40 MG/DL (<1.0)
[2024-04-26 12:09] LABS: ALKALINE PHOSPHATASE 98 U/L (46-116); ALT/SGPT 26 U/L (7.0-40); AST/SGOT 14 U/L (<34); BILIRUBIN,TOTAL 0.5 MG/DL (0.3-1.2); BLOOD UREA NITROGEN 18 MG/DL (9-23); CALCIUM LEVEL 10.3 MG/DL (8.5-10.1); CARBON DIOXIDE LEVEL 29 MMOL/L (20-31); CHLORIDE LEVEL 106 MMOL/L (98-107); CREATININE FOR GFR 0.78 MG/DL (0.55-1.30); GLOMERULAR FILTRATION RATE > 60.0 (>51); GLUCOSE, FASTING 92 MG/DL (60-100); POTASSIUM SERUM 4.3 MMOL/L (3.5-5.1); SODIUM LEVEL 140 MMOL/L (136-145); TOTAL PROTEIN 7.7 G/DL (5.7-8.2)
[2024-04-26 12:10] LABS: THYROID STIMULATING HORMONE 3.365 uIU/ML (0.55-4.78)
[2024-04-26 12:15] LABS: ERYTHROCYTE SEDIMENTATION RATE 16 mm/hr (0-30)
== END ==
LOC: M WUC 09:44
PROVIDERS: ATTEND Physician Assistant
DX: M79.672 Pain in left foot (principal); M79.671 Pain in right foot

== ENCOUNTER → 2024-10-19 | Outpatient (REF) | payer OTHER ==
[2024-10-19 13:50] LABS: AMORPHOUS SEDIMENT SMALL (NEGATIVE); APPEARANCE, URINE HAZY (CLEAR); BACTERIA, URINE AUTO NEGATIVE (NEGATIVE); BILIRUBIN, URINE AUTO NEGATIVE (NEGATIVE); BLOOD, URINE BLOOD 2+ (NEGATIVE); COLOR, URINE YELLOW (YELLOW); GLUCOSE, URINE (UA) AUTO NEGATIVE (NEGATIVE); KETONE, URINE AUTO NEGATIVE (NEGATIVE); LEUKOCYTE ESTERASE, URINE AUTO 1+ (NEGATIVE); MUCUS, URINE SMALL (NEGATIVE); NITRITE, URINE AUTO NEGATIVE (NEGATIVE); PROTEIN, URINE AUTO NEGATIVE (NEGATIVE); RBC, URINE AUTO 1 /HPF (0-3); SPECIFIC GRAVITY URINE AUTO 1.019 (1.002-1.035); SQUAMOUS EPITHELIAL CELL UR AU 11 /HPF (0-6); UROBILINOGEN, URINE AUTO 0.2 mg/dL (0.0-2.0); WBC, URINE AUTO 26 /HPF (0-3)
== END ==
LOC: M LAB REF 12:47
PROVIDERS: ATTEND Physician Assistant
DX: N39.0 Urinary tract infection, site not specified (principal)

== ENCOUNTER → 2025-02-16 | Outpatient (REF) | payer OTHER ==
[2025-02-16 17:38] LABS: APPEARANCE, URINE CLOUDY (CLEAR); BACTERIA, URINE AUTO 1+ (NEGATIVE); BILIRUBIN, URINE AUTO NEGATIVE (NEGATIVE); BLOOD, URINE BLOOD 2+ (NEGATIVE); GLUCOSE, URINE (UA) AUTO NEGATIVE (NEGATIVE); KETONE, URINE AUTO NEGATIVE (NEGATIVE); LEUKOCYTE ESTERASE, URINE AUTO 3+ (NEGATIVE); MUCUS, URINE SMALL (NEGATIVE); NITRITE, URINE AUTO NEGATIVE (NEGATIVE); PROTEIN, URINE AUTO 2+ mg/dL (NEGATIVE); RBC, URINE AUTO 37 /HPF (0-3); SPECIFIC GRAVITY URINE AUTO 1.017 (1.002-1.035); SQUAMOUS EPITHELIAL CELL UR AU 13 /HPF (0-6); UROBILINOGEN, URINE AUTO 0.2 mg/dL (0.0-2.0); WBC, URINE AUTO TNTC /HPF (0-3)
== END ==
LOC: M LAB REF 16:53
PROVIDERS: ATTEND Physician Assistant
DX: N39.0 Urinary tract infection, site not specified (principal)

== ENCOUNTER → 2025-03-02 | Outpatient (REF) | payer OTHER ==
[2025-03-02 17:47] LABS: APPEARANCE, URINE CLOUDY (CLEAR); BACTERIA, URINE AUTO NEGATIVE (NEGATIVE); BILIRUBIN, URINE AUTO NEGATIVE (NEGATIVE); BLOOD, URINE BLOOD 2+ (NEGATIVE); GLUCOSE, URINE (UA) AUTO NEGATIVE (NEGATIVE); KETONE, URINE AUTO NEGATIVE (NEGATIVE); LEUKOCYTE ESTERASE, URINE AUTO 3+ (NEGATIVE); MUCUS, URINE SMALL (NEGATIVE); NITRITE, URINE AUTO POSITIVE (NEGATIVE); PROTEIN, URINE AUTO 2+ mg/dL (NEGATIVE); RBC, URINE AUTO 64 /HPF (0-3); SPECIFIC GRAVITY URINE AUTO 1.018 (1.002-1.035); SQUAMOUS EPITHELIAL CELL UR AU 3 /HPF (0-6); UROBILINOGEN, URINE AUTO 0.2 mg/dL (0.0-2.0); WBC, URINE AUTO TNTC /HPF (0-3)
== END ==
LOC: M LAB REF 17:01
PROVIDERS: ATTEND Physician Assistant Medical
DX: N39.0 Urinary tract infection, site not specified (principal)